=== PATIENT | female | born 1935 | race Hispanic/Latino ===

== ENCOUNTER → 2018-02-17 | Outpatient (CLI) | payer OTHER | END | disposition home or self-care (01) | LOC: RAH 14:29 | PROVIDERS: ATTEND Family Medicine | DX: M48.02 Spinal stenosis, cervical region (principal); M47.12 Other spondylosis with myelopathy, cervical region | CPT/HCPCS: 72141 ==

== ENCOUNTER → 2019-06-23 | Outpatient (CLI) | payer OTHER ==
[~2019-06-23] VITALS: Ht 144.8 cm; Wt 46.7 kg
[~2019-06-23] MED LIST: REGADENOSON 0.4 MG/5 ML PF SYG IVP SCH
== END | disposition home or self-care (01) ==
LOC: SHCH 07:35
PROVIDERS: ATTEND Internal Medicine Cardiovascular Disease
DX: I25.89 Other forms of chronic ischemic heart disease (principal); I25.10 Atherosclerotic heart disease of native coronary artery without angina pectoris
CPT/HCPCS: 78452; 93017; 96374; A9500 ×2; J2785

== ENCOUNTER 2021-10-08 06:41 | Observation (INO) | payer OTHER ==
[2021-10-02 12:53] LABS: BASOPHILS % (AUTO) 0.8 % (0.0-5.0); EOSINOPHILS % (AUTO) 2.8 % (0.0-8.0); HEMATOCRIT 36.3 % (36-48); LYMPHOCYTES % (AUTO) 31.8 % (21.0-51.0); MEAN CORPUSCULAR HEMOGLOBIN 32.1 pg (27.0-33.0); MEAN CORPUSCULAR HGB CONC 32.2 g/dL (32.0-36.0); MEAN CORPUSCULAR VOLUME 99.7 fL (79-99); MONOCYTES % (AUTO) 8.1 % (3.0-13.0); NEUTROPHILS % (AUTO) 56.3 % (40.0-77.0); PLATELET COUNT (AUTO) 238 K/uL (130-400); RED BLOOD CELL COUNT(AUTO) 3.64 MIL/uL (4.00-5.50); RED CELL DISTRIBUTION WIDTH 13.4 % (11.0-15.5); WHITE BLOOD COUNT (AUTO) 4.7 K/uL (4.8-10.8)
[2021-10-02 12:59] LABS: CREATININE 0.8 mg/dL (0.5-1.5); POTASSIUM 4.3 mmol/L (3.5-5.1)
[2021-10-02 12:59] LABS: APPEARANCE,URINE Clear (CLEAR); BILIRUBIN,URINE Negative (NEGATIVE); COLOR,URINE Yellow (YELLOW); GLUCOSE, URINE (UA) Negative (NEGATIVE); KETONES,URINE Negative (NEGATIVE); LEUKOCYTE ESTERASE ,URINE Trace (NEGATIVE); NITRATE,URINE Negative (NEGATIVE); OCCULT BLOOD,URINE Negative (NEGATIVE); PH,URINE 6.5 (5.0-8.0); PROTEIN,URINE Negative (NEGATIVE); UROBILINOGEN,URINE 0.2 mg/dL (0.2-1.0)
[2021-10-02 13:03] LABS: INR 1.03 (0.85-1.15); PROTHROMBIN TIME 11.2 SEC (9.6-11.6)
[2021-10-02 13:05] LABS: PARTIAL THROMBOPLASTIN TIME 27.6 SEC (26.3-35.5)
[2021-10-02 13:13] LABS: BACTERIA,URINE Rare /HPF (None Seen); MUCUS,URINE Rare LPF (None Seen); RBC,URINE None Seen /HPF (0-1); SQUAMOUS EPITHELIAL CELL,UR 0-2 /HPF (0-2); WBC,URINE 0-1 /HPF (0-1)
[2021-10-02 13:13] LABS: B-TYPE NATRIURETIC PEPTIDE 95 pg/mL (0-100)
[2021-10-08] VITALS (12 sets, daily range): BP systolic 106–215; BP diastolic 45–77
[~2021-10-08] VITALS: Ht 144.8 cm; Wt 45.3 kg
[~2021-10-08 06:41] MED LIST changes: +DICY10CA13 PO; +HYDR12.54 PO; +LISI40TA9 PO; +METO-391 PO; +OMEP-420 PO; -REGADENOSON 0.4 MG/5 ML PF SYG IVP SCH; +SIMV10TA97 PO
[2021-10-08] MEDS ORDERED: 0.9%NACL 1000ML 1,000 ML IV ONE (07:05)
[2021-10-08] MEDS ORDERED: ACETAMINOPHEN 500 MG TABLET ONE (07:31)
[2021-10-08] MEDS ORDERED: HYDRALAZINE 20MG/ML VIAL ONE (07:39)
[2021-10-08] MEDS ORDERED: NITROGLYCERIN 50MG VIAL ONE (07:56)
[2021-10-08] MEDS ORDERED: HEPARIN 10,000 UNIT/10ML (1,000 UNIT/ML) VIAL ONE (07:56)
[2021-10-08] MEDS ORDERED: IOHEXOL-350 50ML VIAL IV ONE (07:56)
[2021-10-08] MEDS ORDERED: LIDOCAINE HCL 1% 20 ML VIAL ONE (07:56)
[2021-10-08] MEDS ORDERED: IOHEXOL 350 MG/ML 100ML INFUS..BTL IV ONE (07:57)
[2021-10-08] MEDS ORDERED: FENTANYL CITRATE PF 50 MCG/1 ML 2ML VIAL ONE (07:57)
[2021-10-08] MEDS ORDERED: MIDAZOLAM HCL 1 MG/ML 2ML VIAL ONE (07:57)
[2021-10-08] MEDS ORDERED: BIVALIRUDIN 250 MG/VIAL IV ONE (08:00)
[2021-10-08] MEDS: ACETAMINOPHEN 500 MG TABLET PO SCH (08:00)
[2021-10-08] MEDS ORDERED: MORPHINE 4 MG SYG ONE (08:54)
[2021-10-08] MEDS ORDERED: ONDANSETRON 4MG INJ ONE (09:01)
[2021-10-08] MEDS ORDERED: CLOPIDOGREL 300MG TAB ONE (09:05)
[2021-10-08] MEDS ORDERED: ASPIRIN 325MG EC TAB PO ONE (09:05)
[2021-10-08] MEDS ORDERED: ONDANSETRON 4MG INJ IVP PRN (09:30)
[2021-10-08] MEDS ORDERED: TEMAZEPAM 30 MG CAP PO PRN (09:30)
[2021-10-08] MEDS ORDERED: NON-FORMULARY MEDICATION 1 EACH (Omeprazole 20 MG) PO PRN (09:30)
[2021-10-08] MEDS ORDERED: ACETAMINOPHEN WITH CODEINE 1 TAB TAB PO PRN ×2 (09:30)
[2021-10-08] MEDS ORDERED: NITROGLYCERIN 50MG/D5W 250ML 1 BOT IV PRN (09:30)
[2021-10-08] MEDS ORDERED: SIMVASTATIN 10 MG TABLET PO SCH (21:00)
[2021-10-08] MEDS ORDERED: DICYCLOMINE HCL 20 MG TAB PO SCH (21:00)
[2021-10-09 00:06] VITALS: BP 115/57
[2021-10-09 03:01] VITALS: BP 126/54
[2021-10-09 04:48] LABS: MEAN CORPUSCULAR HGB CONC 32.1 g/dL (32.0-36.0); MEAN CORPUSCULAR VOLUME 99.7 fL (79-99); RED BLOOD CELL COUNT(AUTO) 3.41 MIL/uL (4.00-5.50); RED CELL DISTRIBUTION WIDTH 13.5 % (11.0-15.5); WHITE BLOOD COUNT (AUTO) 5.9 K/uL (4.8-10.8)
[2021-10-09 05:11] LABS: CREATININE 0.9 mg/dL (0.5-1.5); POTASSIUM 3.9 mmol/L (3.5-5.1)
[2021-10-09] MEDS ORDERED: ASPI-1197 PO (06:56)
[2021-10-09] MEDS ORDERED: CLOP75TA32 PO (06:56)
[2021-10-09] MEDS: ACETAMINOPHEN 500 MG TABLET PO SCH (07:43)
[2021-10-09 08:00] VITALS: BP 119/57
[2021-10-09] MEDS ORDERED: CLOPIDOGREL 75MG TAB PO SCH (09:00)
[2021-10-09] MEDS ORDERED: PANTOPRAZOLE 40 MG TAB DR PO SCH (09:00)
[2021-10-09] MEDS ORDERED: HYDROCHLOROTHIAZIDE 25 MG TABLET PO SCH (09:00)
[2021-10-09] MEDS ORDERED: METOPROLOL SUCCINATE 50 MG TAB.SR.24H PO SCH (09:00)
[2021-10-09] MEDS ORDERED: ASPIRIN 81MG CHEW TAB PO SCH (09:00)
== END 2021-10-09 10:00 | disposition home or self-care (01) ==
LOC: DAH 06:41 → DAHIP 06:42 → 2AH 09:53
PROVIDERS: ADMIT Internal Medicine Cardiovascular Disease; ATTEND Internal Medicine Cardiovascular Disease
DX: I25.119 Atherosclerotic heart disease of native coronary artery with unspecified angina pectoris (principal); I10 Essential (primary) hypertension; E78.5 Hyperlipidemia, unspecified; Z79.899 Other long term (current) drug therapy; Z98.890 Other specified postprocedural states
CPT/HCPCS: 36415 ×2; 71045; 80048 ×2; 80061; 81001; 83880; 85025; 85027; 85610; 85730; 93005 ×3; 93458; A4215; A4216; A4221; A4222; A4223 ×3; A4606; A4663; C1760; C1769; C1874 ×2; C1887; C1894; C9600; G0378 ×25; J0360; J1644 ×2; J2250; J2270; J2405; J3490; J7030; Q9965; Q9967 ×2; 99156; 99157; J0583; J3010

== ENCOUNTER → 2023-04-01 | Outpatient (CLI) | payer OTHER ==
[~2023-04-01] MED LIST changes: +ASPI-1197 PO; +CLOP75TA32 PO; +DICY-20 PO; -DICY10CA13 PO; -LISI40TA9 PO
[2023-04-01 12:41] LABS: CHOLESTEROL 154 mg/dL (<200); HDL CHOLESTEROL 68 mg/dL (35-85); LDL DIRECT 77 mg/dL (0-99); TRIGLYCERIDES 82 mg/dL (30-200)
== END | disposition home or self-care (01) ==
LOC: LAB 03-31 11:17
PROVIDERS: ATTEND Internal Medicine Cardiovascular Disease
DX: E78.5 Hyperlipidemia, unspecified (principal)
CPT/HCPCS: 36415; 80061

== ENCOUNTER → 2024-05-19 | Outpatient (CLI) | payer OTHER ==
[~2024-05-19] MED LIST changes: -DICY-20 PO; +DICY10CA2 PO
[2024-05-19] MEDS: REGADENOSON 0.4 MG/5 ML PF SYG IVP ONE (10:53)
== END | disposition home or self-care (01) ==
LOC: SHCH 07:50
PROVIDERS: ATTEND Internal Medicine Cardiovascular Disease
DX: I25.10 Atherosclerotic heart disease of native coronary artery without angina pectoris (principal)
CPT/HCPCS: 78452; 93017; J2785; A9500 ×2